=== PATIENT | female | born 1990 | race Caucasian/White ===

== ENCOUNTER 2016-05-20 05:17 | Day surgery (SDC) ==
[2016-05-19 13:55] LABS: HEMATOCRIT 35.6 % (37.0-47.0); HEMOGLOBIN 10.8 g/dL (12.0-16.0); MCH 27.1 PG (27-31); MCHC 30.3 g/dL (33-37); MCV 89.2 FL (81-99); MPV 10.5 FL (7.4-10.4); RBC 3.99 XMIL (4.2-5.4)
[2016-05-19 14:10] LABS: TOTAL BILIRUBIN 0.25 mg/dL (0.20-1.00)
[2016-05-20] MEDS ORDERED: TRANSDERM-SCOP ONE (06:18)
[2016-05-20] MEDS ORDERED: REGLAN ONE (06:18)
[2016-05-20] MEDS ORDERED: PEPCID ONE (06:18)
[2016-05-20] MEDS ORDERED: LR 1,000 ML ONE ×2 (06:19→09:56)
[2016-05-20] MEDS ORDERED: KEFZOL 1 GM/D5W 50 ML ONE (06:19)
[2016-05-20] MEDS ORDERED: MARCAINE 0.25% PF/EPI 1:200,000 ONE (06:34)
[2016-05-20] MEDS: DEMEROL ONE ×2 (08:54→08:59)
[2016-05-20] MEDS ORDERED: FENTANYL ONE (08:56)
[2016-05-20] MEDS ORDERED: DIPRIVAN 1% ONE (08:56)
[2016-05-20] MEDS ORDERED: VERSED ONE (08:56)
[2016-05-20] MEDS: MORPHINE ONE ×3 (09:08→09:21)
--- NOTE | 2016-05-20 09:18 | OPERATIVE NOTE ---
PROCEDURE DATE: 05/20/2016 PROCEDURE PERFORMED: Robotic single site cholecystectomy. SURGEON: Patrick Davila MD. BUYER LIAISON: Tonya. PREOPERATIVE DIAGNOSIS: Biliary dyskinesia. POSTOPERATIVE DIAGNOSIS: Biliary dyskinesia. DESCRIPTION OF PROCEDURE: Satisfactory general endotracheal anesthesia achieved, the abdomen is prepped and draped in a sterile fashion. We marked the skin transversely through the umbilicus, because that is where the natural skin crease appeared to be. We anesthetized the skin with 0.25 Marcaine with epinephrine and incised the skin transversely through the umbilicus. We then the umbilical skin from the fascia and then incised the anterior rectus sheath transversely and then went through the midline fascia vertically. We made our fascial incision about 2.5 cm. We then introduced the flange and secured it. We insufflated through the flange. We then introduced the elementary assistant teacher trocar and the camera. The camera trocar going in first. Then we used our grasper to grasp the gallbladder and reflected cephalad so the long trocars were chosen. We then removed the elementary assistant teacher trocar and introduced the #2 cannula first, then the #1 cannula. We then placed the patient in reverse Trendelenburg at 20 degrees and we docked the robot. I then introduced the elementary assistant teacher cannula once again. I then scrubbed out and went to the console. The elementary assistant teacher grasped the fundus and reflected it away cephalad and I then used the hook cautery to dissect the adhesions off the fundus, then the infundibulum. We then dissected the triangle and identified it easily. The artery appeared to be with the duct, so after skeletonizing the triangle, we clipped the cystic duct proximally x2, distally x1, and then divided it with electrocautery. We then continued our dissection along the gallbladder bed, the gallbladder wall from the liver. We continued toward the fundus until we completely the gallbladder from the liver. Hemostasis was satisfactory. The gallbladder wall was intact. We did not have to use the [employer] imaging since the triangle was so well identified. We then scrubbed back in. The robot was undocked and then we then removed the flange with the gallbladder held by the grasper all in one motion. We closed the midline fascia with 2-0 Polysorb fascial stitches. We then tacked the umbilical skin down to the fascia with 3-0 Polysorb. We then closed the skin with a 4-0 Polysorb subcuticular stitch. Bolus followed by an overlying OpSite was applied. She tolerated it well. Was sent to the recovery room in satisfactory condition.
[2016-05-20] MEDS ORDERED: PROZAC PO SCH (09:48)
[2016-05-20] MEDS ORDERED: NORCO-10 PO PRN (09:48)
[2016-05-20] MEDS ORDERED: ZOFRAN IV PRN (09:48)
[2016-05-20] MEDS ORDERED: DOXYCYCLINE PO SCH (09:48)
[2016-05-20] MEDS ORDERED: AMITIZA PO SCH (09:48)
[2016-05-20] MEDS ORDERED: ROBINUL ONE (09:55)
[2016-05-20] MEDS ORDERED: NORCURON ONE (09:55)
[2016-05-20] MEDS ORDERED: STERILE WATER INJ. ONE (09:55)
[2016-05-20] MEDS ORDERED: QUELICIN (DOSE) ONE (09:55)
[2016-05-20] MEDS ORDERED: XYLOCAINE-MPF 2% ONE (09:55)
[2016-05-20] MEDS ORDERED: ZOFRAN ONE (09:55)
[2016-05-20] MEDS ORDERED: NEOSTIGMINE ONE (09:55)
[2016-05-20] MEDS ORDERED: NORCO-10 ONE (10:05)
[2016-05-20 10:28] VITALS: BP 113/65
== END 2016-05-20 11:15 | disposition home or self-care (01) ==
LOC: OR 05:17
PROVIDERS: ATTEND Surgery
DX: K81.1 Chronic cholecystitis (principal); K21.9 Gastro-esophageal reflux disease without esophagitis
CPT/HCPCS: 81025; 82247; 84075; 85027; 88304; J0330; J0690; J2175; J2250; J2270; J2405; J3010; J7120; J2710